=== PATIENT | male | born 1945 | race Caucasian/White ===

== ENCOUNTER 2017-10-17 19:26 | Inpatient (IN) | payer MEDICARE, OTHER ==
[~2017-10-17] VITALS: Ht 172.7 cm; Wt 131.5 kg
[2017-10-17] MEDS ORDERED: DABI150C PO (19:45)
[2017-10-17] MEDS ORDERED: SPIR50TA3 PO (19:58)
[2017-10-17] MEDS ORDERED: METO-357 PO (19:58)
[2017-10-17] MEDS ORDERED: TRAM50TA2 PO (19:58)
[2017-10-17] MEDS ORDERED: ALBU8HFA4 IH (19:58)
[2017-10-17] MEDS ORDERED: FURO40TA5 PO (19:58)
[2017-10-17] MEDS ORDERED: LISI40TA4 PO (19:58)
[2017-10-17] MEDS ORDERED: TAMS0.4C34 PO (19:58)
[2017-10-17 20:23] LABS: BASOPHILS % (AUTO) 0.6 % (0.0-2.0); EOSINOPHILS # (AUTO) 0.1 K/uL (0.0-0.7); EOSINOPHILS % (AUTO) 1.2 % (0.0-7.0); HEMATOCRIT 33.6 % (36.7-47.1); HEMOGLOBIN 11.9 g/dL (12.5-16.3); LYMPHOCYTES # (AUTO) 1.5 K/uL (20.0-40.0); LYMPHOCYTES % (AUTO) 20.7 % (20.5-51.5); MEAN CORPUSCULAR HEMOGLOBIN 32.3 uug (23.8-33.4); MEAN CORPUSCULAR HGB CONC 35 g/dL (32.5-36.3); MEAN CORPUSCULAR VOLUME 91.6 fL (73.0-96.2); MONOCYTES # (AUTO) 0.9 K/uL (2.0-10.0); MONOCYTES % (AUTO) 12.2 % (0.0-11.0); NEUTROPHILS # (AUTO) 4.8 K/uL (1.8-8.9); NEUTROPHILS % (AUTO) 65.3 % (38.5-71.5); PLATELET COUNT (AUTO) 155 K/uL (152-348); RED BLOOD CELL COUNT(AUTO) 3.67 MIL/uL (4.06-5.63); WHITE BLOOD COUNT (AUTO) 7.4 K/uL (3.6-10.2)
[2017-10-17 20:30] LABS: CARBON DIOXIDE 20 mmol/L (21-32); CHLORIDE 98 mmol/L (98-107); CREATININE 1.6 mg/dL (0.6-1.3); GLUCOSE 93 mg/dL (74-106); POTASSIUM 3.8 mmol/L (3.5-5.1); UREA NITROGEN, BLOOD 44 mg/dL (7-18)
[2017-10-17 20:42] LABS: ALANINE AMINOTRANSFERASE 144 U/L (16-63); ALKALINE PHOSPHATASE 43 U/L (50-136); ASPARTATE AMINOTRANSFERASE 72 U/L (15-37); BILIRUBIN,DIRECT 0.5 mg/dL (0.0-0.2); BILIRUBIN,TOTAL 1.2 mg/dL (0.2-1.0); TOTAL PROTEIN, SERUM 6.8 g/dL (6.4-8.2)
[2017-10-17] MEDS ORDERED: ASPIRIN 81 MG TAB.CHEW PO ONE (21:45)
[2017-10-17] MEDS ORDERED: ASPIRIN 81 MG TAB.CHEW ONE (21:57)
[2017-10-17] MEDS ORDERED: TRAMADOL HCL 50 MG TABLET PO PRN (23:30)
[2017-10-17] MEDS ORDERED: MORPHINE SULFATE 4 MG/1 ML DISP.SYRIN IV PRN (23:30)
[2017-10-17] MEDS ORDERED: ONDANSETRON 4 MG/2 ML VIAL IV PRN (23:30)
[2017-10-17] MEDS ORDERED: TEMAZEPAM 15 MG CAPSULE PO PRN (23:30)
[2017-10-17] MEDS ORDERED: ACETAMINOPHEN 325 MG TABLET PO PRN (23:30)
[2017-10-17] MEDS ORDERED: ALBUTEROL SULFATE 2.5 MG/3 ML NEBU NEB PRN (23:30)
[2017-10-17 23:50] VITALS: BP 95/55
[2017-10-18] MEDS ORDERED: TEMAZEPAM 15 MG CAPSULE ONE (02:47)
[2017-10-18 04:00] VITALS: BP 111/51
[2017-10-18] MEDS ORDERED: PANTOPRAZOLE SODIUM 40 MG TABLET.DR PO SCH (07:20)
[2017-10-18 07:33] LABS: ALANINE AMINOTRANSFERASE 145 U/L (16-63); ALKALINE PHOSPHATASE 43 U/L (50-136); ASPARTATE AMINOTRANSFERASE 76 U/L (15-37); CARBON DIOXIDE 20 mmol/L (21-32); CHLORIDE 100 mmol/L (98-107); CHOLESTEROL 70 mg/dL (<200); CREATININE 1.4 mg/dL (0.6-1.3); GLUCOSE 102 mg/dL (74-106); HDL CHOLESTEROL 53 mg/dL (40-60); MAGNESIUM 2.3 mg/dL (1.8-2.4); PHOSPHOROUS 4.1 mg/dL (2.5-4.9); POTASSIUM 3.7 mmol/L (3.5-5.1); TOTAL PROTEIN, SERUM 6.7 g/dL (6.4-8.2); UREA NITROGEN, BLOOD 40 mg/dL (7-18)
[2017-10-18 07:40] LABS: BASOPHILS % (AUTO) 0.4 % (0.0-2.0); EOSINOPHILS # (AUTO) 0.1 K/uL (0.0-0.7); EOSINOPHILS % (AUTO) 1.6 % (0.0-7.0); HEMATOCRIT 33.3 % (36.7-47.1); HEMOGLOBIN 11.9 g/dL (12.5-16.3); LYMPHOCYTES # (AUTO) 1.2 K/uL (20.0-40.0); MEAN CORPUSCULAR HEMOGLOBIN 32.6 uug (23.8-33.4); MEAN CORPUSCULAR HGB CONC 36 g/dL (32.5-36.3); MEAN CORPUSCULAR VOLUME 91.2 fL (73.0-96.2); MONOCYTES # (AUTO) 0.7 K/uL (2.0-10.0); MONOCYTES % (AUTO) 12.6 % (0.0-11.0); NEUTROPHILS # (AUTO) 3.8 K/uL (1.8-8.9); NEUTROPHILS % (AUTO) 64.4 % (38.5-71.5); PLATELET COUNT (AUTO) 140 K/uL (152-348); RED BLOOD CELL COUNT(AUTO) 3.66 MIL/uL (4.06-5.63); WHITE BLOOD COUNT (AUTO) 5.8 K/uL (3.6-10.2)
[2017-10-18] MEDS ORDERED: METOPROLOL SUCCINATE XL 50 MG TAB.SR.24H PO SCH (09:00)
[2017-10-18] MEDS ORDERED: FUROSEMIDE 40 MG TABLET PO SCH (09:00)
[2017-10-18] MEDS ORDERED: DABIGATRAN ETEXILATE MESYLATE 150 MG CAPSULE PO ONE (11:15)
[2017-10-18 11:21] VITALS: BP 114/55
[2017-10-18 13:32] LABS: TRIGLYCERIDES 31 MG/DL (30-150)
[2017-10-18] MEDS ORDERED: DOCUSATE SODIUM 250 MG CAPSULE PO SCH (21:00)
[2017-10-18] MEDS ORDERED: DOCUSATE SODIUM 100 MG CAPSULE PO SCH (21:00)
[2017-10-18] MEDS ORDERED: TAMSULOSIN HCL 0.4 MG CAP.SR.24H PO SCH (21:00)
== END 2017-10-18 13:30 | disposition home or self-care (01) | DRG 292 ==
LOC: ER 19:26 → TELE 22:50
PROVIDERS: ADMIT Internal Medicine; ATTEND Internal Medicine
DX: I11.0 Hypertensive heart disease with heart failure (principal); N17.9 Acute kidney failure, unspecified; D69.6 Thrombocytopenia, unspecified; E66.01 Morbid (severe) obesity due to excess calories; I48.0 Paroxysmal atrial fibrillation; E87.1 Hypo-osmolality and hyponatremia; Z68.41 Body mass index [BMI] 40.0-44.9, adult; I50.33 Acute on chronic diastolic (congestive) heart failure; F41.9 Anxiety disorder, unspecified; G47.33 Obstructive sleep apnea (adult) (pediatric); Z79.01 Long term (current) use of anticoagulants; D64.9 Anemia, unspecified; Z90.49 Acquired absence of other specified parts of digestive tract; Z87.891 Personal history of nicotine dependence; Z79.899 Other long term (current) drug therapy; Z79.82 Long term (current) use of aspirin; N40.0 Benign prostatic hyperplasia without lower urinary tract symptoms; Z86.19 Personal history of other infectious and parasitic diseases; K76.0 Fatty (change of) liver, not elsewhere classified; F14.11 Cocaine abuse, in remission
CPT/HCPCS: 36415; 70030-TC; 71045; 83735; 84100; 84443; 85025; 85730; 93005; 93307; A4663